=== PATIENT | male | born 1980 | race Caucasian/White ===

== ENCOUNTER 2024-02-05 11:12 | Emergency (ER) | payer SELFPAY ==
[~2024-02-05] VITALS: Ht 175.3 cm; Wt 109.1 kg
[2024-02-05] MEDS ORDERED: ASPIRIN 81 MG CHEW PO ONE (11:15)
[2024-02-05 11:26] LABS: BASOPHILS 0.8 % (0-2); EOSINOPHILS 0.7 % (0-6); HEMATOCRIT 44.5 % (35.0-50.0); HEMOGLOBIN 14.8 g/dL (12.0-18.0); MCH 29.6 (27-36); MCHC 33.4 g/dl (30-36); MCV 88.5 fl (81-99); MONOCYTES 6.2 % (0-12); NEUTROPHILS 70.3 % (39-80); PLATELET COUNT 257 K/uL (140-440); RBC 5.02 M/ul (4.3-5.7); RDW 13.5 (10.5-15.0)
[2024-02-05 11:45] LABS: ALBUMIN 4.3 g/dL (3.4-5.0); ALBUMIN/GLOBULIN RATIO 1.19 (1.1-2.4); ANION GAP 13.9 (7-21); BILIRUBIN, TOTAL 0.3 ng/dL (0.2-1.0); BUN/CREATININE RATIO 21.42 (6.0-28.6); CALCIUM 9.4 mg/dL (8.5-10.1); CREATININE, SERUM 0.98 mg/dL (0.70-1.30); MAGNESIUM 1.9 mg/dL (1.8-2.4); POTASSIUM 3.9 mmol/L (3.5-5.1); PROTEIN, TOTAL 7.9 g/dL (6.4-8.2)
[2024-02-05 12:49] VITALS: BP 125/71
--- NOTE | 2024-02-06 12:56 | EKG ---
[facility] [address] [facility] [place], [place] [address] Signed Normal sinus rhythm Normal ECG No previous ECGs available Confirmed by Eladio Causey ([id number]) on 02/06/2024 12:55:39 PM Electronically Signed By: ELADIO CAUSEY MD 02/06/24 [id number] PATIENT NAME: TONNY ZHOU HAO Electrocardiogram DATE OF : 78 PHYSICIAN: ELADIO CAUSEY MD REPORT #: [id number] REPORT IS CONFIDENTIAL AND NOT TO BE RELEASED WITHOUT AUTHORIZATION
== END 2024-02-05 12:50 | disposition home or self-care (01) ==
LOC: ED 11:12
PROVIDERS: Emergency Medicine
DX: R07.89 Other chest pain (principal); I10 Essential (primary) hypertension; Z79.899 Other long term (current) drug therapy
CPT/HCPCS: 36415; 71045; 80053; 83735; 84484; 85025; 93005; 93010; 99285-25; A9270

== ENCOUNTER 2024-05-11 15:30 | Emergency (ER) | payer MEDICARE ==
[~2024-05-11] VITALS: Ht 175.3 cm; Wt 111.7 kg
[~2024-05-11 15:30] MED LIST: LISINOPRIL5 MG PO
[2024-05-11 16:26] LABS: BASOPHILS 0.5 % (0-2); EOSINOPHILS 1.3 % (0-6); HEMOGLOBIN 14.8 g/dL (12.0-18.0); LYMPHOCYTES 23.2 % (24-44); MCH 30.7 (27-36); MCHC 35.3 g/dl (30-36); MONOCYTES 7.3 % (0-12); NEUTROPHILS 67.7 % (39-80); PLATELET COUNT 225 K/uL (140-440); RBC 4.82 M/ul (4.3-5.7); RDW 13.9 (10.5-15.0)
[2024-05-11 16:31] LABS: BILIRUBIN, URINE NEGATIVE (negative); BLOOD/HGB, URINE NEGATIVE (Negative); KETONE, URINE NEGATIVE (Negative); LEUK ESTERASE, URINE NEGATIVE (negative); NITRITE, URINE NEGATIVE (negative)
[2024-05-11 16:42] LABS: ALBUMIN 3.8 g/dL (3.4-5.0); ALBUMIN/GLOBULIN RATIO 0.95 (1.1-2.4); ANION GAP 12.2 (7-21); BILIRUBIN, TOTAL 0.4 ng/dL (0.2-1.0); BUN/CREATININE RATIO 20.87 (6.0-28.6); CALCIUM 8.9 mg/dL (8.5-10.1); CREATININE, SERUM 0.91 mg/dL (0.70-1.30); POTASSIUM 4.2 mmol/L (3.5-5.1); PROTEIN, TOTAL 7.8 g/dL (6.4-8.2)
[2024-05-11 19:08] VITALS: BP 132/78
== END 2024-05-11 19:08 | disposition home or self-care (01) ==
LOC: ED 15:30
PROVIDERS: Emergency Medicine
DX: K63.89 Other specified diseases of intestine (principal); I10 Essential (primary) hypertension; Z79.899 Other long term (current) drug therapy
CPT/HCPCS: 36415; 74022; 74177; 80053; 81003; 83690; 85025; 99284-25; Q9967